=== PATIENT | female | born 1955 | race Caucasian/White ===

== ENCOUNTER 2022-07-31 09:09 | Emergency (ER) | payer MEDICARE, MEDICAID ==
[~2022-07-31] VITALS: Ht 157.5 cm; Wt 52.6 kg
[2022-07-31 09:47] VITALS: BP 155/70
[2022-07-31] MEDS ORDERED: IBUP600T27 PO (09:58)
[2022-07-31] MEDS ORDERED: IBUPROFEN 600 MG TAB PO ONE (10:00)
== END 2022-07-31 10:12 | disposition home or self-care (01) ==
LOC: ER 09:09
DX: S62.396A Other fracture of fifth metacarpal bone, right hand, initial encounter for closed fracture (principal); S00.83XA Contusion of other part of head, initial encounter; Z79.1 Long term (current) use of non-steroidal anti-inflammatories (NSAID); W01.0XXA Fall on same level from slipping, tripping and stumbling without subsequent striking against object, initial encounter; Y93.89 Activity, other specified; Y92.89 Other specified places as the place of occurrence of the external cause; Y99.8 Other external cause status
CPT/HCPCS: 29125; 73130